=== PATIENT | male | born 1960 | race Hispanic/Latino ===

== ENCOUNTER → 2025-02-07 | Outpatient (CLI) | payer OTHER ==
--- NOTE | 2025-02-07 22:05 | HMCIMG ---
EXAM: CR RIGHT KNEE, 2 VIEWS CLINICAL HISTORY: Right knee pain. COMPARISON: None provided TECHNIQUE: Two views of the right knee were obtained. FINDINGS: Bones: No fracture or subluxation. No sclerotic or destructive changes observed. The visualized bones are otherwise of normal density with no focal or diffuse bony abnormalities. There is spiking of the tibial spine and patellar poles. Joints: Mildly decreased tibiofemoral and patellofemoral knee joint spaces with small periarticular osteophytes and subchondral sclerosis. No evidence of acute fracture or dislocation. There is no joint effusion. Soft tissues: The periarticular soft tissues are unremarkable. IMPRESSION: 1. Mild degenerative changes of the tibiofemoral and patellofemoral compartments. 2. No acute fracture or dislocation. /[place]
--- NOTE | 2025-02-07 22:07 | HMCIMG ---
EXAM: CR CHEST, 2 VIEWS CLINICAL HISTORY: HBP COMPARISON: None provided TECHNIQUE: Frontal and lateral radiographs of the chest. FINDINGS: Lines/Devices: None. Lungs: Radiographically clear. No consolidation or ground-glass opacities are observed. There is no pleural effusion. There is no pneumothorax. Mediastinum and cardiovascular structures: The cardiac silhouette is not enlarged. The central airway and mediastinal contours are unremarkable. Bones and soft tissues: Degenerative changes are identified in the spine. IMPRESSION: 1. No evidence of acute cardiopulmonary abnormalities. /[place]
--- NOTE | 2025-02-07 22:16 | HMCIMG ---
EXAM: CR LEFT SHOULDER, 2 VIEWS CLINICAL HISTORY: Pain COMPARISON: None provided TECHNIQUE: 2 views of the left shoulder. FINDINGS: Bones: No fracture or subluxation. No sclerotic or destructive changes observed. Joints: Degenerative changes of the glenohumeral and acromioclavicular joints, including decreased joint space, periarticular osteophytes, and subchondral sclerosis. Large inferior osteophyte on the humeral head. No acute dislocation. Soft tissues: Unremarkable. Included chest: Unremarkable. IMPRESSION: 1. No acute fracture or dislocation. 2. Degenerative changes of the glenohumeral joint with large inferior osteophyte on the humeral head. 3. Degenerative changes of the acromioclavicular joint. /[place]
--- NOTE | 2025-02-07 22:18 | HMCIMG ---
STUDY: X-RAY OF THE LUMBAR SPINE, 3 VIEWS HISTORY: Back pain. TECHNIQUE: Three views of the lumbar spine are submitted for interpretation. COMPARISON: None provided. FINDINGS: Bones and joints: There are mild chronic compression deformities of the L1 and L2 vertebral bodies without features to suggest acute fracture. Multilevel degenerative changes are present with osteophytosis and intervertebral disc height loss, more pronounced in the mid to lower lumbar spine. Overall lumbar alignment is maintained without obvious spondylolisthesis. No destructive osseous lesion is identified. Soft tissues: Paraspinal soft tissues appear unremarkable without abnormal swelling or radiopaque foreign body. IMPRESSION: * Mild chronic compression deformities of L1 and L2 without radiographic evidence of an acute lumbar spine fracture. * Multilevel lumbar spondylosis with osteophytosis and intervertebral disc height loss, more pronounced in the mid to lower lumbar spine. Given the patients back pain and the limited soft tissue and neural detail on radiographs, MRI of the lumbar spine is recommended for further assessment of the intervertebral discs and neural elements. /[place]
== END ==
LOC: RAH 15:08
PROVIDERS: ATTEND Internal Medicine
DX: M17.11 Unilateral primary osteoarthritis, right knee (principal); M19.012 Primary osteoarthritis, left shoulder; M54.50 Low back pain, unspecified; M25.512 Pain in left shoulder; M25.561 Pain in right knee; M47.816 Spondylosis without myelopathy or radiculopathy, lumbar region; M43.8X6 Other specified deforming dorsopathies, lumbar region; M25.712 Osteophyte, left shoulder; M25.761 Osteophyte, right knee
CPT/HCPCS: 71046; 72100; 73030; 73560